=== PATIENT | male | born 1980 | race Caucasian/White ===

== ENCOUNTER → 2020-01-24 | Day surgery (SDC) | payer OTHER ==
--- NOTE | 2020-01-24 10:41 | RADIOLOGY REPORT (SQ) ---
EXAM DESCRIPTION: ARTHRO WRIST INJECTION; FLUORO/NEEDLE PLACEMENT COMPLETED DATE/TIME: 01/24/2020 9:35 am REASON FOR STUDY: OTHERR SPECIFIED INJURIES OF RIGHT WRIST, HAND AND FINGERS (S69.81XA) S69.81XA OT H INJURIES OF RIGHT WRIST, HAND AND FINGER(S), IN COMPARISON: None. FLUOROSCOPY TIME: 0.1 MINUTES OF FLUOROSCOPY WAS USED. 1 images saved to PACS. LIMITATIONS: None. PROCEDURE: Procedure, risks, benefits and alternatives explained to patient who then gave written co nsent. The right wrist was marked and a time-out was called for correct marking verification. Radioc arpal site marked using fluoroscopic guidance. Wrist prepped and draped using sterile technique. Lo juventino anesthesia achieved using 0.5 mL 1% lidocaine injection. Hypodermic needle introduced into the j oint space under direct fluoroscopic visualization. 0.5 mL Omnipaque 300 instilled to confirm intra- articular position. Dilute gadolinium solution then injected. Needle removed and entry site covered with sterile bandage. No immediate complications noted. TECHNIQUE: Digital images acquired during fluoroscopy and stored on PACS. Patient immediately take n to the MR suite for additional imaging. INJECTION LOCATION: Right wrist. CONTRAST TYPE AND AMOUNT: 2 mL Dotarem/Saline mixture. IMPRESSION: SUCCESSFUL NEEDLE PLACEMENT AND INJECTION FOR RIGHT WRIST MR ARTHROGRAM. COMMENT: Quality ID #145: Final reports for procedures using fluoroscopy that document radiation exp osure indices, or exposure time and number of fluorographic images (if radiation exposure indices are not available) TECHNICAL DOCUMENTATION: JOB ID: [id number] 2010 [employer]- All Rights Reserved Reading location - IP/workstation name: [email or web address] [id number]
--- NOTE | 2020-01-24 10:41 | RADIOLOGY REPORT (SQ) ---
EXAM DESCRIPTION: ARTHRO WRIST INJECTION; FLUORO/NEEDLE PLACEMENT COMPLETED DATE/TIME: 01/24/2020 9:35 am REASON FOR STUDY: OTHERR SPECIFIED INJURIES OF RIGHT WRIST, HAND AND FINGERS (S69.81XA) S69.81XA OT H INJURIES OF RIGHT WRIST, HAND AND FINGER(S), IN COMPARISON: None. FLUOROSCOPY TIME: 0.1 MINUTES OF FLUOROSCOPY WAS USED. 1 images saved to PACS. LIMITATIONS: None. PROCEDURE: Procedure, risks, benefits and alternatives explained to patient who then gave written co nsent. The right wrist was marked and a time-out was called for correct marking verification. Radioc arpal site marked using fluoroscopic guidance. Wrist prepped and draped using sterile technique. Lo juventino anesthesia achieved using 0.5 mL 1% lidocaine injection. Hypodermic needle introduced into the j oint space under direct fluoroscopic visualization. 0.5 mL Omnipaque 300 instilled to confirm intra- articular position. Dilute gadolinium solution then injected. Needle removed and entry site covered with sterile bandage. No immediate complications noted. TECHNIQUE: Digital images acquired during fluoroscopy and stored on PACS. Patient immediately take n to the MR suite for additional imaging. INJECTION LOCATION: Right wrist. CONTRAST TYPE AND AMOUNT: 2 mL Dotarem/Saline mixture. IMPRESSION: SUCCESSFUL NEEDLE PLACEMENT AND INJECTION FOR RIGHT WRIST MR ARTHROGRAM. COMMENT: Quality ID #145: Final reports for procedures using fluoroscopy that document radiation exp osure indices, or exposure time and number of fluorographic images (if radiation exposure indices are not available) TECHNICAL DOCUMENTATION: JOB ID: [id number] 2010 [employer]- All Rights Reserved Reading location - IP/workstation name: [email or web address] [id number]
--- NOTE | 2020-01-25 12:09 | RADIOLOGY REPORT (SQ) ---
EXAM DESCRIPTION: MRI RT UPPER JOINT WITH COMPLETED DATE/TIME: 01/24/2020 11:10 am REASON FOR STUDY: OTHERR SPECIFIED INJURIES OF RIGHT WRIST, HAND AND FINGERS (S69.81XA) S69.81XA OT H INJURIES OF RIGHT WRIST, HAND AND FINGER(S), IN COMPARISON: None. TECHNIQUE: Right wrist post-arthrogram imaging includes T1 and T1 and T2 fat sat sequences. LIMITATIONS: None. FINDINGS: JOINT DISTENSION: Adequate. No loose bodies. BONE MARROW: Mild patchy subchondral marrow edema in the proximal lunate, ulnar side. No occult frac ture. CARPAL ALIGNMENT AND ARTICULATION: Alignment looks anatomic. Joint spaces are maintained. SCAPHOLUNATE LIGAMENT: Intact. LUNATO-TRIQUETRAL LIGAMENT: Intact. TFC COMPLEX: Intact. EXTRINSIC LIGAMENTS AND DISTAL RADIO-ULNAR JOINT: Normal alignment. Ligaments look grossly intact. 1-6 EXTENSOR COMPARTMENTS: Normal. CARPAL TUNNEL AND MEDIAN NERVE: Normal. OTHER: No other significant finding. IMPRESSION: 1. Edema in the proximal lunate. The appearance may reflect ulnar impaction syndrome. Of note, dudley leandra, there is no significant ulnar variance. No definable chondral loss in any of the regional artic ulations. No evidence of overt ligament disruption. Kienbock disease is in the differential but fel t to be less likely. TECHNICAL DOCUMENTATION: JOB ID: [id number] 2010 [employer]- All Rights Reserved Reading location - IP/workstation name: [email or web address]
== END ==
LOC: RAD 08:28
PROVIDERS: ATTEND Orthopaedic Surgery
DX: S69.81XA Other specified injuries of right wrist, hand and finger(s), initial encounter (principal); X58.XXXA Exposure to other specified factors, initial encounter
CPT/HCPCS: 73222; 25246; 77002; A9576

== ENCOUNTER 2020-05-27 05:38 | Day surgery (SDC) | payer OTHER ==
[2020-05-23 10:40] LABS: ABSOLUTE BASOPHILS # (AUTO) 0.1 10^3/uL (0.0-0.2); ABSOLUTE EOSINOPHILS # (AUTO) 0.1 10^3/uL (0.0-0.6); ABSOLUTE LYMPHOCYTES (AUTO) 1.1 10^3/uL (0.5-4.7); ABSOLUTE MONOCYTES (AUTO) 0.6 10^3/uL (0.1-1.4); ABSOLUTE NEUT (AUTO) 2.5 10^3/uL (1.7-8.2); BASOPHILS % (AUTO) 1.5 % (0-2); EOSINOPHILS % (AUTO) 2.9 % (0-6); HEMATOCRIT 44.7 % (37.9-51.0); HEMOGLOBIN 15.4 g/dL (13.5-17.0); LYMPHOCYTES % (AUTO) 25.2 % (13-45); MEAN CORPUSCULAR HEMOGLOBIN 31.5 pg (27.0-33.4); MEAN CORPUSCULAR HGB CONC 34.6 g/dL (32.0-36.0); MEAN CORPUSCULAR VOLUME 91 fl (80-97); MONOCYTES % (AUTO) 12.8 % (3-13); PLATELET COUNT 241 10^3/uL (150-450); RED BLOOD COUNT 4.91 10^6/uL (4.35-5.55); SEGMENTED NEUTROPHILS % (AUTO) 57.6 % (42-78); TOTAL CELLS COUNTED % (AUTO) 100 %; WHITE BLOOD COUNT 4.4 10^3/uL (4.0-10.5)
[2020-05-23 10:57] LABS: ANION GAP 8 (5-19); BLOOD UREA NITROGEN 10 mg/dL (7-20); CALCIUM 9.9 mg/dL (8.4-10.2); CARBON DIOXIDE 30 mmol/L (22-30); CHLORIDE 103 mmol/L (98-107); GLUCOSE 99 mg/dL (75-110); POTASSIUM 4.9 mmol/L (3.6-5.0)
[~2020-05-27 05:38] MED LIST: CEFAZOLIN 2 GM/D5W RTU 2 GM/50 ML RTUPB IV ONE; CEFAZOLIN 2 GM/D5W RTU 2 GM/50 ML RTUPB IV PRN; CEFAZOLIN SODIUM 2 GM in DEXTROSE 5%-WATER 100 ML IV SCH; LACTATED RINGERS 1000 ML IV PRN
[2020-05-27] MEDS ORDERED: FENTANYL CITRATE INJ/PF 100 MCG/2 ML AMPUL ONE (06:16)
[2020-05-27] MEDS ORDERED: MIDAZOLAM 2 MG/2 ML INJ ONE (06:16)
[2020-05-27] MEDS ORDERED: ONDANSETRON HCL INJ/PF 4 MG/2 ML SDV ONE (06:16)
[2020-05-27] MEDS ORDERED: DEXAMETHASONE SOD PHOSPHATE INJ 4 MG/1 ML VIAL ONE (06:16)
[2020-05-27] MEDS ORDERED: PROPOFOL INJ 200 MG/20 ML VIAL IV ONE (06:17)
[2020-05-27] MEDS ORDERED: LIDOCAINE 0.5% INJ-PF (5 MG/ML) 50 ML SDV ONE (06:17)
[2020-05-27] MEDS ORDERED: BUPIVACAINE HCL 0.5 % INJ/PF 30 ML SDV ONE (07:33)
[2020-05-27] MEDS ORDERED: MEPERIDINE HCL/PF INJ 25 MG/1 ML DISP.SYRIN IV PRN (08:16)
[2020-05-27] MEDS ORDERED: MORPHINE SULFATE 10 MG/ML INJ IV PRN ×2 (08:16→10:09)
[2020-05-27] MEDS ORDERED: PROMETHAZINE HCL INJ 25 MG/1 ML VIAL IV PRN ×2 (08:16)
[2020-05-27] MEDS ORDERED: DIPHENHYDRAMINE HCL 50 MG/ML VIAL IV PRN (08:16)
[2020-05-27] MEDS ORDERED: ONDANSETRON HCL INJ/PF 4 MG/2 ML SDV IV PRN (08:16)
[2020-05-27] MEDS ORDERED: FENTANYL CITRATE INJ/PF 100 MCG/2 ML AMPUL IV PRN ×3 (08:16)
[2020-05-27] MEDS ORDERED: SUCCINYLCHOLINE CHLORIDE INJ 200 MG/10 ML VIAL ONE (10:00)
[2020-05-27] MEDS ORDERED: OXYCODONE-ACETAMINOPHEN 5-325 MG TABLET PO PRN (10:09)
--- NOTE | 2020-05-27 10:09 | Discharge Summary ---
Discharge Summary (SDC) - Discharge Final Diagnosis: Right Wrist Ulnar Impaction Date of Surgery: 05/27/20 Discharge Date: 05/27/20 Condition: Good Treatment or Instructions: Schedule Follow Up w/ Dr. Jake Aleman @ [facility] for Surgery to be seen in 10-14 days or as scheduled [place]: [place]: [place]: Ice and elevate Keep splint clean/dry/intact, do not remove. If your fingers become numb please unwrap the Andrew wrap but leave the splint in place, if the sensation does not return within 30 minutes please return to the emergency department. May begin finger range of motion attempting to make full fist. Please use ibuprofen (Motrin or Advil) 600-800 mg every 8 hours as needed for pain or fever DO NOT TAKE w/ TORADOL may use once TORADOL complete. You may also use acetaminophen (Tylenol) 1000 mg every 4-6 hours as needed for pain or fever. Please be aware that many medications contain acetaminophen, do not exceed a total of 1000 mg of acetaminophen every 6 hours. If ibuprofen and acetaminophen are not sufficient for your pain you may take the Percocet/Crest[place]. Please be aware that the Percocet/Creston does contain Tylenol. Stool softener of choice when on pain medication. USE OF HVIT-STT-OUQLOCD IBUPROFEN: Ibuprofen (Advil, Nuprin, Medipren, Motrin IB) is a medication for fever and pain control. In addition, it has anti- inflammatory effects which may be beneficial, especially in the treatment of injuries. It's best to take ibuprofen with food. Persons with ulcer disease or allergy to aspirin should notify their physician of this before taking ibuprofen. Ibuprofen can be given every four to six hours, for a total of four doses daily. Age Pain or fever dose Antiinflammatory dose 6-8 yr 200 mg (1 tab) 200 mg (1 tab) 9-11 yr 200 mg (1 tab) 200-400 mg (1-2 tab) 11-14 yr 200-400 mg (1-2 tab) 400 mg (2 tab) 15-adult 400 mg (2 tab) 600 mg (3 tab) ORAL NARCOTIC MEDICATION: You have been given a prescription for pain control. This medication is a narcotic. It's best taken with food, as nausea can result if taken on an empty stomach. Don't operate machinery or drive within six hours of taking this medication. Do not combine this medicine with alcohol, or with any medication which can cause sedation (such as cold tablets or sleeping pills) unless you get permission from the physician. Narcotics tend to cause constipation. If possible, drink plenty of fluids and eat a diet high in fiber and fruits. Please be aware that prescription narcotics also have the potential for abuse. People become addicted to these medications because of the general sense of wellbeing that they induce. This feeling along with a significant reduction in tension, anxiety, and aggression provides a stimulating seductive quality to these drugs. Once your pain is under control, we encourage you to discard your unused narcotics. Prescriptions: Ketorolac Tromethamine [Toradol 10 mg Tablet] 10 mg PO Q8HP PRN #12 tablet PRN Reason: Oxycodone HCl/Acetaminophen [Percocet 5-325 mg Tablet] 1 tab PO Q6 PRN #25 tab PRN Reason: Discharge Diet: As Tolerated Respiratory Treatments at Home: Deep Breathing/Coughing Discharge Activity: No Lifting Over 10 Pounds, No Lifting/Push/Pulling Report the Following to Your Physician Immediately: Fever over 101 Degrees, Unusual Bleeding, Redness, Swelling, Warmth, Increased Soreness
--- NOTE | 2020-05-27 10:18 | Operative Report ---
Operative Report DATE OF SURGERY: 05/27/20 PREOPERATIVE DIAGNOSIS: Right wrist TFCC tear POSTOPERATIVE DIAGNOSIS: Same OPERATION: Right wrist arthroscopy with TFCC debridement SURGEON: SALVADOR GOTTLIEB ANESTHESIA: GA COMPLICATIONS: None ESTIMATED BLOOD LOSS: Minimal PROCEDURE: Indication for above procedure: 39-year-old male with longstanding history of right distal discomfort. 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 Attempted conservative measures including anti-inflammatories, injections and activity modification. Patient symptoms continue to persist. At that point we discussed treatment options decision was made to proceed with operative intervention. Procedure In Detail: Patient was seen and evaluated in the preoperative holding area. The RIGHT upper extremity was initialized and marked. Patient received 2g of Ancef IV for bacterial prophylaxis. Patient was taken back to the operative room where transferred to the operative table and placed under general anesthesia. Once they were adequately anesthetized a nonsterile tourniquet was placed on the upper extremity. A surgical team debriefing was performed ensuring all instrumentation was available, the surgical procedure was discussed with possible concerns reviewed. The upper extremity was prepped with chlorhexidine and alcohol and draped in a sterile fashion. A timeout was done identifying correct patient, procedure and extremity everyone in attendance agree with this and verbalized no concerns. There was equivalent DRUJ instability bilaterally tested under anesthesia. Patient was placed in the Acumed arthroscopy wrist distractor. The extremity was exsanguinated the tourniquet was inflated to 250 mmHg. A 3-4 portal was established. Arthrex anoscope was then inserted. Dry arthroscopy was performed via triangulation a 4-5 portal was established. No evidence of TFCC tears was chondral defect along the proximal lunate. Saline flow was then started at 20 mmHg. Arthroscopy demonstrated full-thickness chondral defect along the proximal lunate consistent with ulnar impaction with friability along the chondral edges. There is no evidence of scaphoid or lunate fossa degenerative changes. The chondral defect was then debrided back to stable base with the arthroscopic shaver. Synovitis was noted along the prestyloid recess. Partial synovectomy was performed. A midcarpal radial and midcarpal ulnar portal was established there is no evidence of scapholunate widening. No evidence of midcarpal arthritis. There was instability noted along the lunotriquetral interval with intact dorsal and volar fibers. The probe fit between the lunotriquetral interval approximately 2 mm. No further widening was noted. No evidence of hamate chondral defect. Given patient's lunotriquetral instability along with proximal lunate lesion decision was made to proceed with ulnar shortening osteotomy. Once occlusive incision was made along the ulnar border. Blunt dissection was performed. Dorsal ulnar sensory branch was protected. Interval between the FCU and ECU was then established. Supra periosteal dissection was performed to the ulna. The Acumed ulnar shortening plate was then secured C arm fluoroscopy was obtained confirming appropriate placement. Given patient's +2 ulnar variance with pronation decision was made to proceed with 3 mm of shortening. The plate was first secured distally with a bicortical screw and the locking peg was placed proximally. Remaining distal holes were drilled but not filled. Cutting device was secured with a K wire. With a sagittal saw osteotomy was made while continuing intermittent saline to avoid osteonecrosis. 3 mm shortening was then dialed into position and and remainder of the osteotomy was completed. Plate was then removed and wafer of bone excised and saved in the back table. Plate was then resecured and reduction clamp placed across the locking guide and locking peg while placing a lobster-claw was placed around the osteotomy providing further compression. Remaining proximal screws were then drilled appropriate size cortex screw was placed in a locking screw placed most proximally. While maintaining reduction of the osteotomy the far cortex was drilled with a 2.8 mm drill bit and near cortex with a 3.5 mm drill bit and i nterfragmentary screw was placed perpendicular to the osteotomy providing further interfragmentary compression. Once the clamp was removed there was a small defect dorsally this was later filled with remanent osteotomy wafer. Final C arm fluoroscopy was obtained confirming appropriate placement of the plate with adequate shortening. Wound was copiously irrigated with normal saline. Tourniquet was deflated and a peripheral bleeding was controlled with bipolar cautery. FCU/ECU interval was closed with interrupted 3-0 Monocryl suture. Skin was closed with subcuticular 4-0 Monocryl reinforced with Dermabond and Steri-Strips. Portal holes were closed with 4-0 Monocryl suture. Patient was placed in a sugar tong splint with the forearm at neutral position. 30 cc of 0.5% bupivacaine without epinephrine was injected for postoperative pain control. Sponge counts, instrument counts, needle counts were correct. Patient was then awoken from anesthesia. Transferred from the operating room table to the operating room stretcher. There was no intraoperative complications patient tolerated procedure well stable to PACU. Postop plan: Patient follow the office in 2 weeks at which point patient will be placed in a long-arm cast until 4 weeks postoperatively. At 4 weeks postop we will be transition to a [place] cast until 6 weeks postoperatively once radiographic healing is noted patient will begin range of motion.
[2020-05-27] MEDS: FENTANYL CITRATE INJ/PF 100 MCG/2 ML AMPUL ONE ×2 (10:21→10:26)
[2020-05-27] MEDS: MEPERIDINE HCL/PF INJ 25 MG/1 ML DISP.SYRIN ONE ×2 (10:22→10:27)
[2020-05-27] MEDS ORDERED: HYDROMORPHONE HCL INJ/PF 2 MG/ML AMPULE ONE (10:31)
[2020-05-27] MEDS ORDERED: DIPHENHYDRAMINE HCL 50 MG/ML VIAL ONE (10:37)
[2020-05-27] MEDS ORDERED: BUPIVACAINE HCL 0.25% /EPINEPHRINE INJ/PF 30 ML SDV ONE (10:49)
--- NOTE | 2020-05-27 12:50 | RADIOLOGY REPORT (SQ) ---
EXAM DESCRIPTION: NO CHG FLUORO; FOREARM RIGHT IMAGES COMPLETED DATE/TIME: 05/27/2020 10:17 am; 05/27/2020 10:18 am REASON FOR STUDY: RIGHT WRIST ULNAR SHORTENING ASSISTED WITH FLUORO IN OR COMPARISON: None. FLUOROSCOPY TIME: 27 seconds 5 Images saved to PACS LIMITATIONS: None. PROCEDURE: Ulnar shortening FINDINGS: Images from fluoro document resection of a portion of the ulna and placement of a compress ion plate and 7 screws. IMPRESSION: Postoperative study. Refer to operative note for further information. COMMENT: PQRS 6045F: Fluoroscopy time of the procedure is documented in the report. TECHNICAL DOCUMENTATION: JOB ID: [id number] 2010 [employer]- All Rights Reserved Reading location - IP/workstation name: [email or web address]
--- NOTE | 2020-05-27 12:50 | RADIOLOGY REPORT (SQ) ---
EXAM DESCRIPTION: NO CHG FLUORO; FOREARM RIGHT IMAGES COMPLETED DATE/TIME: 05/27/2020 10:17 am; 05/27/2020 10:18 am REASON FOR STUDY: RIGHT WRIST ULNAR SHORTENING ASSISTED WITH FLUORO IN OR COMPARISON: None. FLUOROSCOPY TIME: 27 seconds 5 Images saved to PACS LIMITATIONS: None. PROCEDURE: Ulnar shortening FINDINGS: Images from fluoro document resection of a portion of the ulna and placement of a compress ion plate and 7 screws. IMPRESSION: Postoperative study. Refer to operative note for further information. COMMENT: PQRS 6045F: Fluoroscopy time of the procedure is documented in the report. TECHNICAL DOCUMENTATION: JOB ID: [id number] 2010 [employer]- All Rights Reserved Reading location - IP/workstation name: [email or web address]
[2020-05-27 13:38] VITALS: BP 131/78
== END 2020-05-27 12:30 | disposition home or self-care (01) ==
LOC: OROUT 05:38
PROVIDERS: ATTEND Orthopaedic Surgery
DX: S63.591A Other specified sprain of right wrist, initial encounter (principal); X58.XXXA Exposure to other specified factors, initial encounter; M25.831 Other specified joint disorders, right wrist; Z79.899 Other long term (current) drug therapy; Z87.891 Personal history of nicotine dependence; Z03.818 Encounter for observation for suspected exposure to other biological agents ruled out; M65.831 Other synovitis and tenosynovitis, right forearm
CPT/HCPCS: 36415; 85025; 87635; 80048; 73090; 29846; 29844; J2250; J3490 ×3; J0690 ×2; J1100; J1200; J3010; J2175; J1170; J0330; J2405; J7060; J2704; C9803; 01830; C1713; C1769